=== PATIENT | female | born 1995 | race Caucasian/White ===

== ENCOUNTER 2016-07-02 11:50 | Emergency (ER) | payer BC ==
[2016-07-02 12:10] VITALS: TEMP 97.9
--- NOTE | 2016-07-02 12:12 | ED.PDOC ---
History of Present Illness - General Chief Complaint: Behavioral / Psych Stated Complaint: shaking, numbness, and sob, heart racing Time Seen by Provider: 07/02/16 12:07 Source: patient, RN notes reviewed, Vital Signs reviewed, family Exam Limitations: no limitations - History of Present Illness Initial Comments: Patient reports that 5 days ago she had a typical migraine. Prior to a migraine she sees flashing lights and her hands and feet go numb. IZAGUIRRE resolved with OTC Excedrin but she woke up the next morning with her typical pre-migraine symptoms but never developed a IZAGUIRRE. This has continued for the past 4 days. Today they seemed to worsen, her head and hands feel light, seeing more light flashes and halos and her feet started tingling. On the way to work she had a panic attack with her heart racing and SOB. Timing/Duration: constant - 4 days Severity: mild Improving Factors: nothing Worsening Factors: nothing Associated Symptoms: headaches Allergies/Adverse Reactions: Allergies NO KNOWN ALLERGY Allergy (Verified 07/02/16 12:05) Review of Systems - Review of Systems Constitutional: States: no symptoms reported. Denies: chills, diaphoresis, fever, malaise EENTM: States: no symptoms reported. Denies: eye pain, blurred vision, double vision Respiratory: States: short of breath. Denies: cough, orthopnea, stridor, wheezing Cardiology: States: palpitations. Denies: chest pain, edema, syncope Gastrointestinal/Abdominal: States: no symptoms reported Genitourinary: States: no symptoms reported Musculoskeletal: States: no symptoms reported Skin: States: no symptoms reported Neurological: States: see HPI, headache, paresthesia, tingling Endocrine: States: no symptoms reported Hematologic/Lymphatic: States: no symptoms reported Past Medical History (General) - Patient Medical History Hx Diabetes: No Surgical History: no surgical history - Vaccination History Hx Tetanus, Diphtheria Vaccination: No Hx Influenza Vaccination: No Immunizations Up to Date: Yes - Social History Hx Tobacco Use: No Hx Alcohol Use: Yes - occasional Hx Substance Use: No Hx Substance Use Treatment: No Hx Depression: No - Activities of Daily Living Hospice Agency (if applicable):: None - Female History Patient is a Female of Child Bearing Age (10 -59 yrs old): Yes Patient : No Family Medical History - Family History Mother Family History: Unknown Living Status: Still Living Physical Exam - Physical Exam General Appearance: Alert, Comfortable, No apparent distress, Well Developed, Well Groomed, Well Hydrated, Well Nourished Eye Exam: right abnormal EOM - Eye movement seems slightly off from left, left normal, bilateral other - VA: L 20/40, R 20/30 Ears, Nose, Throat: hearing grossly normal, normal ENT inspection, normal pharynx Neck: non-tender, full range of motion, supple, normal inspection Respiratory: chest non-tender, lungs clear, normal breath sounds, no respiratory distress, no accessory muscle use Cardiovascular/Chest: regular rate, rhythm, no edema, no gallop, no JVD, no murmur Extremity: normal range of motion, non-tender, normal inspection, no pedal edema 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, no motor/sensory deficits, alert, normal mood/affect, oriented x 3 Skin Exam: normal color, warm/dry Lymphatic: no adenopathy Progress - Results/Orders Results/Orders: Laboratory Tests 07/02/16 12:41 WBC 5.2 RBC 4.87 Hgb 13.6 Hct 40.8 MCV 83.7 MCH 27.8 MCHC 33.3 RDW 13.1 Plt Count 173 MPV 10.5 H Absolute Neuts (auto) 2.70 Absolute Lymphs (auto) 1.70 Absolute Monos (auto) 0.60 Absolute Eos (auto) 0.10 Absolute Basos (auto) 0.00 Neutrophils % 52.4 Lymphocytes % 32.5 Monocytes % 12.0 H Eosinophils % 2.3 Basophils % 0.8 Sodium 140 Potassium 4.3 Chloride 107 Carbon Dioxide 25 Anion Gap 12.3 BUN 14 Creatinine 0.84 BUN/Creatinine Ratio 16.7 Random Glucose 101 Serum Osmolality 280.0 Calcium 9.6 Total Bilirubin 0.4 AST 17 ALT 17 Alkaline Phosphatase 74 Serum Total Protein 7.7 Albumin 4.1 Globulin 3.6 H Albumin/Globulin Ratio 1.1 Urine Color Yellow Urine Appearance Clear Urine pH 6.5 Ur Specific [place] 1.015 Urine Protein Negative Urine Glucose (UA) Negative Urine Ketones Negative Urine Blood Trace-lysed H Urine Nitrite Negative Urine Bilirubin Negative Urine Urobilinogen 0.2 Ur Leukocyte Esterase Trace H Urine RBC 0-1 Urine WBC 1-3 Ur Epithelial Cells 5-10 Urine Bacteria Rare Urine HCG, Qual Negative - EKG/XRAY/CT CT Ordered: Yes - Head - no acute intracranial abnormality. Departure - Departure Clinical Impression: Paresthesia of arm, Migraine aura without headache Disposition: Discharge to Home or Self Care Condition: Good Departure Forms: ED Discharge - Pt. Copy, Patient Portal Self Enrollment Instructions: Migraine -- Adult Diet: resume usual diet Activity: increase activity as tolerated Additional Instructions: Follow up with your Neurologist this week.
--- NOTE | 2016-07-02 12:57 | CT ---
PROCEDURE: Head HISTORY: Migraine/paresthesia Indication: Same as above Comparison: None Technique: CT of the head was done without intravenous contrast was done in the orthogonal planes. FINDINGS: There is no intracranial hemorrhage, midline shift mass effect or acute focal infarct. If clinical concern exists regarding an acute ischemic/vascular pathology being responsible for patient's symptomatology, an MRI of the brain is more sensitive than the current study, in ruling out such a possibility. There is good reece/white matter differentiation. The ventricular system is normal. The mastoid air cells are unremarkable . The paranasal sinuses are unremarkable . There is no visualization of acute fractures involving the calvarium or the skull base. IMPRESSION: There is no acute intracranial abnormality. Electronically signed by: Kareem Golden MD 07/02/2016 12:57 PM CDT
[2016-07-02 13:58] VITALS: BP 117/77; O2SAT 98
== END 2016-07-02 13:55 | disposition home or self-care (01) ==
LOC: ER 11:50
DX: G43.109 Migraine with aura, not intractable, without status migrainosus (principal)